=== PATIENT | male | born 2005 | race Caucasian/White ===

== ENCOUNTER 2024-03-12 14:08 | Observation (INO) ==
[2024-03-12] MEDS: Lactated Ringers 1000 ml BAG IV.FLUID IV ONE (14:38)
[2024-03-12 15:03] LABS: Rapid Strep Molecular Negative (Negative)
[2024-03-12 15:15] LABS: INR 1.42 (0.85-1.14)
[2024-03-12 15:30] LABS: Albumin 4.2 g/dL (3.2-5.2); Albumin/Globulin Ratio 1.4 (1-3); Calcium 9.4 mg/dL (8.6-10.3); Creatinine, Serum 0.85 mg/dL (0.67-1.17); Total Bilirubin 0.4 mg/dL (0.2-1.0); Total Protein 7.2 g/dL (6.4-8.9); eGFR CKD-EPI 128.4 (>60)
[2024-03-12 15:44] LABS: ABS Basophils 0.1 10^3/uL (0.0-0.1); ABS Eosinophils 0.1 10^3/uL (0.0-0.5); ABS Lymphocytes 1.8 10^3/uL (1.0-4.8); ABS Monocytes 0.1 10^3/uL (0.0-1.1); ABS Neutrophils 14.3 10^3/uL (1.5-7.6); ABS Nucleated RBC 0.01 10^3/ul; Eosinophil % 0.6 %; Hematocrit 44.6 % (38-53); Hemoglobin 15.2 g/dL (13.2-16.3); Lymphocyte % 11.1 %; Mean Corpuscular Hemoglobin 28.9 pg (27-33); Mean Corpuscular Hgb Conc 34.1 g/dL (31-36); Mean Corpuscular Volume 84.9 fL (80-97); Mean Platelet Volume 8.3 fL (7.5-11.2); Nucleated Red Blood Cells % 0.1 %/100WBC (0.0-0.8); Platelet Count 329 10^3/uL (150-450); Red Blood Count 5.26 10^6/uL (4.06-5.63); Red Cell Distribution Width 14.1 % (12-17); White Blood Count 16.5 10^3/uL (3.6-10.2)
[2024-03-12] MEDS: Albuterol/Ipratropium NEB.SOL (2.5/0.5 MG) 3 ML NEB.SOLN INH ONE (17:07)
[2024-03-12] MEDS: methylPREDNISolone SOD SUCC 125 mg 2 ML VIAL IV ONE (17:32)
[2024-03-12] MEDS: cefTRIAXone 1 gm/50 mL D5W 1 GM/50 ML BAG IV ONE (17:32)
[2024-03-12] MEDS: Azithromycin 500 mg/250 ml NS 500 MG/250 ML BAG IVPB ONE (17:33)
[2024-03-12 18:13] LABS: Urine Appearance Clear; Urine Bilirubin Negative (Negative); Urine Blood Negative (Negative); Urine Color Light-Yellow; Urine Glucose Negative (Negative); Urine Ketones Negative (Negative); Urine Nitrite Negative (Negative); Urine Protein Negative (Negative); Urine Specific Gravity 1.009 (1.002-1.030); Urine Urobilinogen Negative (Negative)
[2024-03-12] MEDS: Lactated Ringers 1000 ml BAG 1,000 ML IV ONE (18:48)
[2024-03-12] MEDS: Lactated Ringers 1000 ml BAG 1,000 ML IV SCH (18:48)
[2024-03-12 21:11] LABS: HIV 4th Generation Nonreactive (Nonreactive)
[2024-03-13 09:57] LABS: Calcium 8.7 mg/dL (8.6-10.3); Creatinine, Serum 0.78 mg/dL (0.67-1.17); Potassium 4.6 mmol/L (3.5-5.0); eGFR CKD-EPI 131.7 (>60)
[2024-03-13 10:05] LABS: ABS Eosinophils 0.1 10^3/uL (0.0-0.5); ABS Lymphocytes 1.8 10^3/uL (1.0-4.8); ABS Monocytes 0.5 10^3/uL (0.0-1.1); ABS Neutrophils 5.6 10^3/uL (1.5-7.6); ABS Nucleated RBC 0.01 10^3/ul; Eosinophil % 1.6 %; Hematocrit 41.4 % (38-53); Hemoglobin 13.5 g/dL (13.2-16.3); Lymphocyte % 22.3 %; Mean Corpuscular Hemoglobin 28.3 pg (27-33); Mean Corpuscular Hgb Conc 32.6 g/dL (31-36); Mean Corpuscular Volume 86.7 fL (80-97); Nucleated Red Blood Cells % 0.1 %/100WBC (0.0-0.8); Platelet Count 293 10^3/uL (150-450); Red Blood Count 4.78 10^6/uL (4.06-5.63); Red Cell Distribution Width 13.7 % (12-17)
[2024-03-13] MEDS: methylPREDNISolone SOD SUCC 125 mg 2 ML VIAL IV ONE (12:37)
[2024-03-13] MEDS: Albuterol/Ipratropium NEB.SOL (2.5/0.5 MG) 3 ML NEB.SOLN INH SCH (15:14)
[2024-03-13] MEDS: cefTRIAXone 1 gm/50 mL D5W 1 GM/50 ML BAG IV SCH (17:04)
[2024-03-13] MEDS: Azithromycin 500 mg/250 ml NS 500 MG/250 ML BAG IVPB SCH (17:51)
[2024-03-13] MEDS: NS 0.9% 1000 ml BAG 1,000 ML IV SCH (19:24)
[2024-03-13] MEDS: Ondansetron 4 mg VIAL 2 MG/ML 2 ml VIAL IV PRN (22:44)
[2024-03-14 06:25] LABS: ABS Lymphocytes 1.9 10^3/uL (1.0-4.8); ABS Monocytes 0.5 10^3/uL (0.0-1.1); ABS Neutrophils 6.6 10^3/uL (1.5-7.6); ABS Nucleated RBC 0.01 10^3/ul; Eosinophil % 0.2 %; Hematocrit 37.7 % (38-53); Hemoglobin 12.9 g/dL (13.2-16.3); Lymphocyte % 20.6 %; Mean Corpuscular Hgb Conc 34.2 g/dL (31-36); Mean Corpuscular Volume 84.9 fL (80-97); Mean Platelet Volume 8.4 fL (7.5-11.2); Nucleated Red Blood Cells % 0.1 %/100WBC (0.0-0.8); Platelet Count 309 10^3/uL (150-450); Red Blood Count 4.44 10^6/uL (4.06-5.63); Red Cell Distribution Width 13.8 % (12-17); White Blood Count 9.1 10^3/uL (3.6-10.2)
[2024-03-14 06:55] LABS: Creatinine, Serum 0.7 mg/dL (0.67-1.17); Potassium 4.5 mmol/L (3.5-5.0); eGFR CKD-EPI 136.1 (>60)
[2024-03-14 09:59] VITALS: BP 118/86
[2024-03-15 11:37] LABS: Mycoplasma pneumoniae IgG Ab Positive (Negative); Mycoplasma pneumoniae IgM Ab Reactive (Negative)
[2024-03-15 23:02] LABS: M pneumoniae IgM IFA Positive (Negative)
== END 2024-03-14 15:10 | disposition home or self-care (01) ==
LOC: ED 14:08 → EDHOLD 14:08 → SSU 21:23
PROVIDERS: ADMIT Hospitalist; ATTEND Student in an Organized Health Care Education/Training Program